=== PATIENT | male | born 1965 | race African-American/Black ===

== ENCOUNTER 2017-04-15 08:11 | Emergency (ER) | payer MEDICAID ==
[~2017-04-15] VITALS: Ht 180.3 cm; Wt 111.0 kg
[2017-04-15] MEDS ORDERED: ACETAMINOPHEN 500MG TABLET PO ONE (09:45)
[2017-04-15 10:50] VITALS: BP 166/116
[2017-04-15] MEDS ORDERED: MIDAZOLAM HCL 2 MG/2 ML VIAL ONE (10:59)
[2017-04-15] MEDS ORDERED: FENTANYL CITRATE/PF 50MCG/ML 2ML VIAL ONE (10:59)
[2017-04-15] MEDS ORDERED: PROPOFOL 200MG/20ML VIAL IV ONE ×2 (11:37→11:52)
[2017-04-15] MEDS ORDERED: DEXAMETHASONE 4MG/ML 1ML VIAL ONE (11:38)
[2017-04-15] MEDS ORDERED: SUCCINYLCHOLINE CHLORIDE 200MG/10ML VIAL IV ONE (11:38)
[2017-04-15] MEDS ORDERED: LABETALOL HCL 5MG/ML VIAL 20ML IV ONE (11:38)
[2017-04-15] MEDS ORDERED: GLYCOPYRROLATE 0.2 MG/ML 2ML VIAL ONE (11:38)
[2017-04-15] MEDS ORDERED: LIDOCAINE HCL 1% 20ML VIAL (Pyxis) INJ ONE (11:38)
[2017-04-15] MEDS ORDERED: ONDANSETRON HCL 4MG/2ML VIAL ONE (11:39)
[2017-04-15] MEDS ORDERED: HYDROMORPHONE HCL/PF 2MG/ML (OR) ONE ×2 (11:50→12:56)
[2017-04-15] MEDS ORDERED: NEOSTIGMINE METHYLSULFATE 1MG/ML 10 ML VIAL ONE (12:51)
[2017-04-15] MEDS ORDERED: SODIUM CHLORIDE 0.9% 10ML VIAL ONE (12:56)
== END 2017-04-15 10:55 | disposition home or self-care (01) ==
LOC: ER 08:21
DX: S60.221A Contusion of right hand, initial encounter (principal); S63.601A Unspecified sprain of right thumb, initial encounter; F17.210 Nicotine dependence, cigarettes, uncomplicated; G40.909 Epilepsy, unspecified, not intractable, without status epilepticus; Z91.012 Allergy to eggs; Y04.0XXA Assault by unarmed brawl or fight, initial encounter; Y93.89 Activity, other specified; Y92.018 Other place in single-family (private) house as the place of occurrence of the external cause
CPT/HCPCS: 73130; 99284; A4216; J0330; J1100; J1170; J2250; J2405; J2710; J3010; J3490; Z7610; J2704

== ENCOUNTER 2018-07-09 22:30 | Inpatient (IN) | payer MEDICAID, OTHER ==
[~2018-07-09] VITALS: Ht 180.3 cm; Wt 104.3 kg
[2018-07-10] MEDS ORDERED: SODIUM CHLORIDE 0.9% 1,000 ML IV ONE (02:11)
[2018-07-10] MEDS ORDERED: MORPHINE SULFATE 4 MG/ML CPJ (NOT FOR IM USE) IV STA (02:11)
[2018-07-10] MEDS ORDERED: ONDANSETRON HCL 4MG/2ML INJ IV STA (02:11)
[2018-07-10] MEDS ORDERED: VANCOMYCIN 1 G PREMIX 200 ML IV SCH (02:15)
[2018-07-10] MEDS ORDERED: PIPERACILLIN/TAZ 3.375G PREMIX 50 ML IV ONE (02:15)
[2018-07-10 02:50] LABS: BASOPHILS % 0.1 % (0.0-2.0); EOSINOPHILS % 0.1 % (0.0-5.0); HEMATOCRIT. 44.5 % (42.0-52.0); HEMOGLOBIN. 14.8 g/dL (14.0-18.0); LYMPHOCYTES % 14.5 % (20.0-50.0); MEAN CORPUSCULAR HEMOGLOBIN 29.5 pg (28.0-32.0); MEAN CORPUSCULAR VOLUME 89.1 fL (80.0-94.0); MEAN PLATELET VOLUME 8.7 fl (7.4-10.4); MONOCYTES % 10.7 % (2.0-8.0); NEUTROPHILS % 74.6 % (40.0-76.0); PLATELET 171 x1000/uL (130-400); RED CELL DISTRIBUTION WIDTH 14.8 % (11.6-14.6)
[2018-07-10 02:53] LABS: CHLORIDE 100 mEq/L (98-107)
[2018-07-10 03:28] LABS: PROTHROMBIN TIME 87.9 sec (9.1-11.1)
[2018-07-10 04:11] LABS: INR 9.1
[2018-07-10] MEDS ORDERED: ESTR0.3T3 PO (10:42)
[2018-07-10] MEDS ORDERED: TRAZ-213 PO (10:42)
[2018-07-10] MEDS ORDERED: [UNRECOGNIZED DRUG - CODE] PO (10:42)
[2018-07-10] MEDS ORDERED: PHEN-434 PO (10:42)
[2018-07-10] MEDS ORDERED: FLUO20CA33 PO (10:42)
[2018-07-10] MEDS ORDERED: ABIL10 PO (10:42)
[2018-07-10 10:45] VITALS: BP 126/77
[2018-07-10] MEDS ORDERED: PHYTONADIONE 10MG/ML AMP SUBCUT NR (12:00)
[2018-07-10] MEDS ORDERED: CLINDAMYCIN 900 MG in DEXTROSE 5% WATER 50 ML IV SCH (12:00)
[2018-07-10] MEDS ORDERED: ONDANSETRON HCL 4MG/2ML INJ IV PRN (12:00)
[2018-07-10] MEDS ORDERED: ACETAMINOPHEN 325MG TABLET PO PRN (12:00)
[2018-07-10] MEDS: HYDROCODONE/ACETAMINOPHEN 5/325MG TABLET PO PRN (16:23)
[2018-07-10] MEDS: CLINDAMYCIN 600 MG in DEXTROSE 5% WATER 50 ML IV SCH (17:49)
[2018-07-10 19:13] LABS: HEPATITIS B SURFACE ANTIGEN NEGATIVE
[2018-07-10 19:43] LABS: HEPATITIS A AB IGM NEGATIVE (NEGATIVE)
[2018-07-10 20:00] VITALS: BP 130/82
[2018-07-10] MEDS: HYDROMORPHONE HCL/PF 2MG/ML CPJ IV PRN (22:17)
[2018-07-10 23:42] VITALS: BP 125/71
[2018-07-11] MEDS: CLINDAMYCIN 600 MG in DEXTROSE 5% WATER 50 ML IV SCH ×4 (01:45→18:59)
[2018-07-11 04:05] VITALS: BP 125/78
[2018-07-11 06:54] LABS: BASOPHILS % 0.2 % (0.0-2.0); EOSINOPHILS % 0.8 % (0.0-5.0); HEMATOCRIT. 41.3 % (42.0-52.0); HEMOGLOBIN. 13.7 g/dL (14.0-18.0); LYMPHOCYTES % 19.3 % (20.0-50.0); MEAN CORPUSCULAR HEMOGLOBIN 29.7 pg (28.0-32.0); MEAN CORPUSCULAR VOLUME 89.8 fL (80.0-94.0); MEAN PLATELET VOLUME 8.9 fl (7.4-10.4); MONOCYTES % 11.9 % (2.0-8.0); NEUTROPHILS % 67.8 % (40.0-76.0); PLATELET 158 x1000/uL (130-400); RED CELL DISTRIBUTION WIDTH 14.6 % (11.6-14.6)
[2018-07-11 07:09] LABS: CHLORIDE 102 mEq/L (98-107)
[2018-07-11 08:00] VITALS: BP 118/64
[2018-07-11 12:19] VITALS: BP 126/69
[2018-07-11 15:52] VITALS: BP 119/72
[2018-07-11 20:00] VITALS: BP 114/67
[2018-07-11] MEDS: HYDROCODONE/ACETAMINOPHEN 5/325MG TABLET PO PRN (21:22)
[2018-07-12] VITALS: BP 116/69
[2018-07-12 04:00] VITALS: BP 120/67
[2018-07-12] MEDS: CLINDAMYCIN 600 MG in DEXTROSE 5% WATER 50 ML IV SCH (07:02)
[2018-07-12 08:00] VITALS: BP 136/86
[2018-07-12] MEDS: HYDROMORPHONE HCL/PF 2MG/ML CPJ IV PRN ×2 (08:36→22:03)
[2018-07-12 12:00] VITALS: BP 148/93
[2018-07-12] MEDS ORDERED: VANCOMYCIN 2,000 MG in DEXT 5% WATER 500 ML IV NR (13:00)
[2018-07-12 14:16] LABS: CLARITY URINE CLEAR (CLEAR); COLOR URINE YELLOW (YELLOW); KETONES URINE NEGATIVE (NEGATIVE); LEUKOCYTE ESTERASE URINE NEGATIVE (NEGATIVE); NITRITE URINE NEGATIVE (NEGATIVE); OCCULT BLOOD URINE TRACE (NEGATIVE); PH URINE 5.5 (4.5-8.0); PROTEIN URINE NEGATIVE (NEGATIVE); SPECIFIC GRAVITY URINE 1.024 (1.005-1.030)
[2018-07-12 14:39] LABS: *AMPHETAMINES SCREEN URINE NEGATIVE (NEGATIVE); CANNABINOID URINE SCREEN NEGATIVE (NEGATIVE); METHADONE URINE SCREEN NEGATIVE (NEGATIVE); OPIATES URINE SCREEN PRESUMTIVE POSITIVE (NEGATIVE); PHENCYCLIDINE URINE SCREEN NEGATIVE (NEGATIVE)
[2018-07-12 14:40] LABS: *BARBITURATES SCREEN URINE NEGATIVE (NEGATIVE); *BENZODIAZEPINES SCREEN URINE NEGATIVE (NEGATIVE); *COCAINE SCREEN URINE PRESUMTIVE POSITIVE (NEGATIVE)
[2018-07-12 16:00] VITALS: BP 120/84
[2018-07-12 19:06] LABS: HIV 1 ABS Positive (Negative); HIV 2 ABS Negative (Negative); HIV SCREEN 4G Reactive (Non Reactive); INTERPRETATION HIV-1 Positive (.)
[2018-07-12 20:00] VITALS: BP 147/95
[2018-07-13] VITALS: BP 133/78
[2018-07-13] MEDS ORDERED: VANCOMYCIN 1 G PREMIX 200 ML IV SCH (01:00)
[2018-07-13] MEDS: HYDROMORPHONE HCL/PF 2MG/ML CPJ IV PRN (03:23)
[2018-07-13 06:41] LABS: BASOPHILS % 0.2 % (0.0-2.0); EOSINOPHILS % 1.6 % (0.0-5.0); HEMATOCRIT. 42.7 % (42.0-52.0); HEMOGLOBIN. 14.4 g/dL (14.0-18.0); LYMPHOCYTES % 26.2 % (20.0-50.0); MEAN CORPUSCULAR HEMOGLOBIN 29.8 pg (28.0-32.0); MEAN CORPUSCULAR VOLUME 88.4 fL (80.0-94.0); MEAN PLATELET VOLUME 8.3 fl (7.4-10.4); MONOCYTES % 14.2 % (2.0-8.0); NEUTROPHILS % 57.8 % (40.0-76.0); PLATELET 205 x1000/uL (130-400); RED BLOOD CELL COUNT 4.83 mill/uL (4.7-6.1); RED CELL DISTRIBUTION WIDTH 14.6 % (11.6-14.6)
[2018-07-13 06:44] LABS: CHLORIDE 102 mEq/L (98-107)
[2018-07-13 08:24] VITALS: BP 141/87
[2018-07-13 11:48] VITALS: BP 135/89
[2018-07-13 13:55] VITALS: BP 135/89
== END 2018-07-13 14:19 | disposition home or self-care (01) | DRG 383 ==
LOC: ER 22:30 → EDBEDREQ 07-10 02:23 → 6EST 07-10 05:52 → EDBEDREQTM 07-10 06:25 → EDBEDREQ 07-10 06:25 → ENRESERV 07-10 07:43
PROVIDERS: ADMIT Internal Medicine; ATTEND Internal Medicine
DX: L03.311 Cellulitis of abdominal wall (principal); N17.0 Acute kidney failure with tubular necrosis; L02.211 Cutaneous abscess of abdominal wall; E66.9 Obesity, unspecified; G40.909 Epilepsy, unspecified, not intractable, without status epilepticus; R74.0 Nonspecific elevation of levels of transaminase and lactic acid dehydrogenase [LDH]; Z68.32 Body mass index [BMI] 32.0-32.9, adult; Z91.012 Allergy to eggs
CPT/HCPCS: 36415; 74176; 80048; 80305; 83605; 86701; 86702; 86705; 86709; 86803; 87340; 87389; 93005; 93970; 96361; 96374; 96375; 99285; J1170; J2270; J2405; J2543; J3370; J3430; J3490; J7030; J7060

== ENCOUNTER 2020-02-13 11:40 | Emergency (ER) | payer MEDICAID, OTHER ==
[~2020-02-13] VITALS: Ht 180.3 cm; Wt 110.0 kg
[~2020-02-13 11:40] MED LIST: ABIL10 PO; ESTR0.3T3 PO; FLUO20CA33 PO; PHEN-434 PO; TRAZ-252 PO; [UNRECOGNIZED DRUG - CODE] PO
[2020-02-13] MEDS ORDERED: KETOROLAC 30MG/ML VIAL IM ONE (12:15)
[2020-02-13] MEDS ORDERED: CYCLOBENZAPRINE 10MG TABLET PO ONE (12:15)
[2020-02-13 12:32] VITALS: BP 157/103
== END 2020-02-13 12:30 | disposition home or self-care (01) ==
LOC: ER 11:40
DX: M25.511 Pain in right shoulder (principal)
CPT/HCPCS: 96372; 99283; J1885